=== PATIENT | male | born 1965 | race Caucasian/White ===

== ENCOUNTER 2024-01-06 19:10 | Emergency (ER) | payer OTHER, SELFPAY ==
[2024-01-06 19:14] VITALS: BP 133/77
[2024-01-06 23:00] VITALS: BP 128/78
[2024-01-06] MEDS: NEURONTIN 300 MG PO (23:58)
[2024-01-06] MEDS: VALTREX 1000 MG PO (23:58)
--- NOTE | 2024-01-07 00:08 | ED.GENMED ---
History of Present Illness
General
Chief Complaint: Extremity Pain (non-traumatic)
Source: patient and spouse
Exam Limitations: none
Time Seen by Provider: 01/06/24 22:09
Nursing documentation reviewed up to this point in time: agreed with
Travel History
Have you had any contact with someone who has COVID-19?: No
Do you have any symptoms of coronavirus? Fever > 100 degrees, chills, cough, shortness of breath, sore throat, loss of taste or smell, muscle aches, or headache?: No
History of Present Illness
History of Present Illness:
58-year-old male with a past medical history of CAD who presents to the emergency department for evaluation of left arm pain and rash. Patient reports onset of symptoms Sunday when he woke up�he says that he has an intense numbness/pressure pain
mostly in the left forearm but radiates up towards the left shoulder. No exacerbating or relieving factors noted�not worse with movement, not relieved with NSAIDs. He initially saw urgent care physician Sunday evening for the symptoms and was
given a Medrol Dosepak to take for presumed radiculopathy. He says that this is not helping his pain and today he woke up with a rash on the left arm and decided to come to the emergency to be assessed. He denies any trauma to the arm or shoulder.
He denies any fevers or chills. Denies any chest pain or shortness of breath. He denies having had similar symptoms in the past. 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
Past History
Past History
ED Past Medical History: None
ED Past Surgical History: Orthopedic and Other
Social History
Tobacco: Non-smoker
Alcohol: None
Living: with roommate
Family History
Family History: Early CAD and CAD; Negative Diabetes, Hypertension, Asthma or Cancer
Review of Systems
Review of Systems
All Other Systems: ROS reviewed and negative except as documented in HPI and ROS
Constitutional: Denies fever or chills
Respiratory: Denies cough or trouble breathing
Cardiac: Denies chest pain
ABD/GI: Denies abdominal pain, nausea or vomiting
: Denies flank pain
Musculoskeletal: Reports muscle pain (Arm pain); Denies neck pain or back pain
Skin: Reports rash
Neurological: Reports other (Paresthesias); Denies headache
Phy Exam
Physical Exam
Physical Exam:
General: Awake, alert, oriented x3; no acute distress
Head: Normocephalic, atraumatic
Eyes: Conjunctiva normal, sclera anicteric
Throat: Airway intact, handling secretions
Neck: Trachea midline, supple without meningismus, good range of motion without discomfort
Lungs: Breathing comfortably no distress
Heart: Regular rate
Neuro: Cranial nerves grossly intact, speech fluid, motor and sensory function intact in extremities
Skin: Patient has scattered lesions along C6 dermatome in the left arm- lateral upper arm and ventral forearm; scattered vesicles with some scabbing
Extremities: No edema in extremities, equal pulses in all extremities specifically strong left radial pulse; he has no focal tenderness in the left upper extremity, full range of motion in left shoulder, elbow, wrist without significant discomfort
Scores
Heart Failure Risk
Heart Failure Risk Score: Not Applicable
Heart Score for Chest Pain Patients
STEMI patient?: Not applicable
Withdrawal Assessment of Alcohol
Withdrawal Assessment Completed?: Not applicable
Course
Orders/Labs/Results
Orders:
Orders
01/06/24 19:14
Electrocardiogram (*1) Urgent
Reason for Study: Chest Pain
EKG- Treatment ONCE
01/06/24 23:51
Gabapentin [Neurontin] 300 mg PO NOW STA
01/06/24 23:52
Valacyclovir HCl [Valtrex] 1,000 mg PO ONCE ONE
01/06/24 19:14
01/06/24 19:14
Vital Signs
Initial and Last Documented VS:
Initial Vital Signs
Temp Pulse Resp BP Pulse Ox
36.8 C 86 22 133/77 95
01/06/24 19:14 01/06/24 19:14 01/06/24 19:14 01/06/24 19:14 01/06/24 19:14
Last Documented Vital Signs
Temp Pulse Resp BP Pulse Ox
36.8 C 86 22 133/77 95
01/06/24 19:14 01/06/24 19:14 01/06/24 19:14 01/06/24 19:14 01/06/24 19:14
MDM/Problems Addressed
Differential Diagnosis Includes:
Cervical radiculopathy, shingles, muscular strain
MDM/Problems Addressed:
58-year-old male presents for evaluation of left arm pain for the past few days today started to notice rash on the left arm. Initially treated for radiculopathy with a Medrol Dosepak but symptoms not improving with this measure. Vital signs are
normal. Exam as above. Clinically concern for shingles. Will plan to treat with Valtrex, gabapentin for pain. Will discharge to follow-up with PCP. Patient comfortable with this plan. Spoke about return precautions all questions answered.
*Pulse Oximetry
Patient hypoxic: no
*EKG
Interpreted by ED Provider?: Yes
Heart Rate: 84
Rate: normal
Rhythm: sinus and PAC's
[place]: normal axis
Interval: normal interval
QRS Pattern: normal QRS
Ischemia: no ischemia
*Critical Care Note
Total Time (30-74mins, 75-104mins- exclusive of procedures): Not Applicable
Data Reviewed
Review of Other/Old Records Reveals: Labs and Records
Source: patient and spouse
ED Attending Note
-
Portions of this chart may have been created with voice recognition software.� Occasional wrong word or��sound alike� substitutions may have occurred due to the inherent limitations of voice recognition software.
Discharge Plan
Departure
Patient Disposition: Home (Routine Discharge)
Date of Disposition: 01/07/24
Time of Disposition: 00:01
Patient with high blood pressure during this ER visit?: No
Discharge Problem:
Shingles
Instructions: Shingles (DC)
Prescriptions:
New
valacyclovir [Valtrex] 1 gram tablet
1,000 mg PO TID 10 Days Qty: 30 0RF
gabapentin 300 mg capsule
300 mg PO BID Qty: 30 0RF
Referrals:
Bertha Davies DO [Family Provider] - Follow up in 2-3 days
Activity Restrictions/Additional Instructions:
Thank you for visiting the Emergency Department at [facility].
1. Please schedule a follow up appointment as directed. Call first thing tomorrow morning to make an appointment.
2. If indicated, please take your medications as instructed and indicated on discharge paperwork.
3. If any of your symptoms do not improve, or persist, or become more severe within 6-12 hours, please return to the emergency department for further care.
4. Please return to the emergency department if you develop a headache, neck pain/stiffness, fever greater than 100.4F, chest pain, shortness of breath, persistent nausea, vomiting, slurred speech, difficulty walking, numbness/tingling, weakness,
signs of infection or any other symptoms that are worrisome to you.
Please call [phone] if you have any questions.
Interventions
Interventions:
*Risk Screen - Suicide Last Done: 01/06/24 19:14
*General Assessment Last Done: 01/06/24 20:40
*Neglect/Abuse Screening Last Done: 01/06/24 19:14
ED- Fall Risk Assessment Last Done: 01/06/24 20:40
*ED COVID-19 Vaccine History Last Done: 01/06/24 20:40
ED-Skin Assessment Last Done: 01/06/24 20:40
ED-Peripheral Vascular Assessment Last Done: 01/06/24 20:40
ED- Neurological Assessment Last Done: 01/06/24 20:40
ED-Musculoskeletal Assessment Last Done: 01/06/24 20:40
Discharge Date and Time
Print Language: MACANESE
== END 2024-01-07 00:17 | disposition home or self-care (01) ==
LOC: EMR 19:10
PROVIDERS: EMERGENCY PHYSICIAN Emergency Medicine; FAMILY PHYSICIAN Family Medicine
DX: B02.9 Zoster without complications (principal); M25.512 Pain in left shoulder; M79.632 Pain in left forearm; I25.10 Atherosclerotic heart disease of native coronary artery without angina pectoris; M43.22 Fusion of spine, cervical region
CPT/HCPCS: 99283; 93005